=== PATIENT | female | born 1950 | race Two or more races ===

== ENCOUNTER → 2016-10-07 | Outpatient (CLI) | payer MEDICARE, OTHER ==
[~2016-10-07] MED LIST: ASPI325T32 PO; CELE-54 PO; CLON-379 PO; DOCU-144 PO; DULO30CA47 PO; HYDR-3605 PO; LANTUS; LIRA0.6P2 SQ; LYRI25 PO; MEMA5TAB PO; METF500T4 PO; MIRT15TA5 PO; PANT40TA4 PO; SYNTHROID; TRAM50TA2 PO; ZOLP5TAB PO
--- NOTE | 2016-10-07 10:14 | RADRPT ---
PROCEDURE: XR right knee. CLINICAL INDICATION: Knee pain. TECHNIQUE: AP and lateral weightbearing views are available for review. COMPARISON: 09/11/2016 FINDINGS: There is a total knee replacement. There is no evidence of loosening of the prosthesis. The osseous structures are normal in mineralization, architecture and alignment No acute fracture or dislocation is seen.No osseous lesions are identified. The soft tissues are unremarkable . there is a slight d ecrease in the suprapatellar joint effusion IMPRESSION: Unremarkable total knee replacement. Slight decrease in suprapatellar joint effusion RPTAT: HGDB .Ortega Benedict MD, Date Time Electronically viewed and signed by .Ortega Benedict MD, on 10/07/2016 10:13 .B/
--- NOTE | 2016-10-07 12:32 | HKNOTE ---
DATE OF SERVICE: 10/07/2016 INTERVAL HISTORY: The patient represented today for a follow up evaluation on her left knee. She is two and a half months status post right total knee arthroplasty. She is doing well overall except she had a mechanical fall while trying to sit in her computer chair. She fell with her a knee in a flexed position and has been having some increasing pain to the right knee since that time. She is able to ambulate but does complain of some mild pain. She came in today more as a precautionary measure. She presents today for a follow up evaluation and check up on her right knee. PHYSICAL EXAMINATION: The patient IS alert and oriented x4 and in no acute distress. She walks with a slight antalgic gait. Knee range of motion is 0-130 degrees. Varus and valgus forces are stable. There is no effusion. There is no erythema or warmth. Compartments are soft. Chelsea's sign is negative. She is neurovascularly intact distally. IMAGING: Two views of the right knee were obtained today and reviewed by me show no fractures or dislocations. There is good anatomic alignment of both the femoral and tibial components. ASSESSMENT: Two and a half month status post right total knee arthroplasty. PLAN: 1. Continue physical therapy. 2. Ice the right knee. 3. No evidence of fracture radiographically. 4. Follow up in three months for repeat exam and x-ray. Dictated By: JOYCE BADILLO for LEXX RAMÍREZ/GINNA Conf#: [id number] DID#: [id number] MTDD
== END | disposition home or self-care (01) ==
LOC: HKI 09:42
PROVIDERS: ATTEND Orthopaedic Surgery
DX: Z47.1 Aftercare following joint replacement surgery (principal); Z96.651 Presence of right artificial knee joint
CPT/HCPCS: 73560; G0463

== ENCOUNTER → 2016-11-06 | Outpatient (CLI) | payer MEDICARE, OTHER ==
--- NOTE | 2016-11-06 18:01 | RADRPT ---
PROCEDURE: Right knee radiographs. CLINICAL INDICATION: Right knee pain. Postop. TECHNIQUE: Three views. Weight bearing. Frontal, lateral, and patellar view. COMPARISON: 10/07/2016. FINDINGS: There is no fracture or dislocation. The soft tissues are normal. There is a total right knee arthroplasty which appears satisfactory. There is no lytic or blastic lesion. There is a moderate joint effusion. IMPRESSION: 1. Moderate joint effusion. 2. Otherwise satisfactory postoperative appearance of the right knee. RPTAT: QQ .Jeff Renteria MD, MD Date Time Electronically viewed and signed by .Jeff Renteria MD, MD on 11/06/2016 18:00 .R/
== END | disposition home or self-care (01) ==
LOC: HKI 15:07
PROVIDERS: ATTEND Orthopaedic Surgery
DX: Z47.1 Aftercare following joint replacement surgery (principal); Z96.653 Presence of artificial knee joint, bilateral
CPT/HCPCS: 73562; G0463

== ENCOUNTER → 2017-04-30 | Outpatient (CLI) | payer MEDICARE, OTHER ==
[~2017-04-30] MED LIST changes: +ASPI-664 PO; +ESOM40CA PO; +TYL2 PO
--- NOTE | 2017-04-30 22:44 | RADRPT ---
PROCEDURE: XR Knee. CLINICAL INDICATION: Right knee pain TECHNIQUE: Weightbearing AP, lateral and sunrise views of the right knee were obtained. COMPARISON: 11/06/2016 FINDINGS: Not visible on the prior study is a periprosthetic lucency measuring 2.6 mm adjacent to the lateral aspect of the femoral metallic prosthetic component. The proximal tibial prosthetic aspect is [employer] factory appearance as are the postoperative changes of the posterior patellar margin. There is no v arus or valgus angulation. The prosthesis is normally aligned. Bone architecture mineralization ar e stable. The suprapatellar joint effusion has decreased has not resolved compared to the prior karina dy. RPTAT:HJJR IMPRESSION: 1. Compared to the study of 11/06/2016, interval development of a 3.6 mm periprosthetic lucency invo lving the femoral component of the arthroplasty changes of the right knee raising concern for prosth etic loosening. 2. Decrease in joint effusion. Physician Kojo Date Time Electronically viewed and signed by Physician Kojo on 04/30/2017 22:44 /
== END | disposition home or self-care (01) ==
LOC: HKI 13:44
PROVIDERS: ATTEND Orthopaedic Surgery
DX: M25.561 Pain in right knee (principal); I10 Essential (primary) hypertension; E11.9 Type 2 diabetes mellitus without complications; E03.9 Hypothyroidism, unspecified; K21.9 Gastro-esophageal reflux disease without esophagitis; E78.5 Hyperlipidemia, unspecified; Z96.651 Presence of right artificial knee joint
CPT/HCPCS: 73562; G0463

== ENCOUNTER → 2017-12-15 | Outpatient (CLI) | END | disposition home or self-care (01) ==